=== PATIENT | female | born 1985 | race Caucasian/White ===

== ENCOUNTER 2016-11-15 06:26 | Inpatient (IN) | payer OTHER ==
--- NOTE | 2016-11-13 11:58 | PREOPHP ---
DATE OF ADMISSION: 11/15/2016 HISTORY OF PRESENT ILLNESS: This is a 28-year-old female, 3, para 3. This patient had a history of having large fibroids that are giving her heavy periods with clots. She has being going to the emergency room several times due to pain. She had an ultrasound that showed a very large fibroid. She was placed on oral contraceptive without alleviation of her pain or bleeding. The patient also had side effects from the control. Also, she was placed on naproxen. That also giving her nausea and stomach aches. The patient was advised for a myomectomy due to her age. PAST MEDICAL HISTORY: No medical or surgical antecedents. REVIEW OF SYSTEMS: Healthy history except for anemia, pelvic pain and fibroids. FAMILY HISTORY: Noncontributory. PHYSICAL EXAMINATION: VITAL SIGNS: Blood pressure 90/60, pulse 86, respirations 16. She weighs 146. HEAD AND NECK: Normal. BREASTS: Soft, nontender, no masses. CHEST: Clear. HEART: Normal sinus rhythm. BACK: Normal. ABDOMEN: Soft, with a large uterine fundus. Fibroid palpated above the pubic bone. EXTREMITIES: Normal. GENITOURINARY: External genitalia is negative. The uterus has a very large fibroid. Adnexa nonpalpable due to the size of this mass. DIAGNOSIS: 1. Intractable pelvic pain and bleeding. 2. Large giant fibroid uterus. PLAN: She is undergoing a multiple myomectomy, possible total abdominal hysterectomy. She has been advised of the possible risks and possible complications of the procedure with her alternatives and options. Written information was provided. She was also instructed that in case of inability of removing the fibroids due to bleeding, she might end up with a hysterectomy. She has been advised of the possible risks and possible complications of both procedures. She has been given her alternatives and options and written information was provided. She had no more questions, and agreed to go ahead with the procedure with full understanding and no more questions. Dictated By: Anita Manuel MD /kary/ec /Document#: [id number]
[~2016-11-15] VITALS: Ht 165.1 cm; Wt 65.0 kg
[2016-11-15] VITALS (14 sets, daily range): BP systolic 99–126; BP diastolic 63–82; PULSE 60–90; RESP 12–18; Ht 165.1 cm; Wt 65.0 kg
[~2016-11-15 06:26] MED LIST: CEFAZOLIN 2 GM/50 ML (PMX) 50 ML IVPB SCH; DEXTROSE 5%-0.9% NACL 1,000 ML IV SCH
[2016-11-15] MEDS ORDERED: MIDAZOLAM 1 MG/ML 2 ML INJ ONE (09:21)
[2016-11-15] MEDS ORDERED: morphine SULFATE/PF (10 MG/10 ML) INJ ONE (09:22)
--- NOTE | 2016-11-15 09:29 | HPN ---
Date/Time of Note Date/Time of Note DATE: 11/15/16 TIME: 09:28 Interval H&P Admission Note Pt. seen H&P reviewed: No system changes ARLINE BAEZA MD Nov 15, 2016 09:29
[2016-11-15] MEDS ORDERED: PROPOFOL 100 ML ONE (09:33)
[2016-11-15] MEDS ORDERED: ROCURONIUM 50 MG INJ ONE (09:33)
[2016-11-15] MEDS ORDERED: LIDOCAINE 2% (SDV) 5 ML INJ ONE (09:33)
[2016-11-15] MEDS ORDERED: ONDANSETRON 4 MG INJ ONE (10:48)
[2016-11-15] MEDS ORDERED: DEXAMETHASONE 4 MG/ML 1 ML INJ ONE (10:48)
[2016-11-15] MEDS ORDERED: LABETALOL HCL 20MG INJ IV PRN (11:00)
[2016-11-15] MEDS ORDERED: ZOLPIDEM 5 MG TAB PO PRN (11:00)
[2016-11-15] MEDS ORDERED: HYDROCODONE/APAP (5/325) TAB PO PRN ×3 (11:00)
[2016-11-15] MEDS ORDERED: EPHEDrine SULFATE 50 MG/5 ML SYG IV PRN (11:00)
[2016-11-15] MEDS ORDERED: hydrALAzine 20 MG INJ IV PRN (11:00)
[2016-11-15] MEDS ORDERED: DIPHENHYDRAMINE 50 MG CAP PO PRN (11:00)
[2016-11-15] MEDS ORDERED: BISACODYL (EC) 5 MG TAB PO PRN (11:00)
[2016-11-15] MEDS ORDERED: ONDANSETRON 4 MG INJ IV PRN ×3 (11:00→11:30)
[2016-11-15] MEDS ORDERED: HYDROmorphONE 1 MG/ML SYG IV PRN ×3 (11:00)
[2016-11-15] MEDS ORDERED: KETOROLAC 30 MG INJ IV PRN (11:00)
[2016-11-15] MEDS ORDERED: NALOXONE (0.4 MG/ML) INJ IV PRN (11:00)
[2016-11-15] MEDS ORDERED: OXYCODONE/ACETAMINOPHEN (5/325) TAB PO PRN ×2 (11:00)
[2016-11-15] MEDS ORDERED: FENTAnyl 50 MCG/ML VIAL IV PRN ×5 (11:00→11:30)
[2016-11-15] MEDS ORDERED: DIPHENHYDRAMINE 50 MG INJ IV PRN ×2 (11:00)
[2016-11-15] MEDS ORDERED: MEPERIDINE 25 MG INJ IV PRN (11:00)
--- NOTE | 2016-11-15 11:00 | OPR ---
Date/Time of Note Date/Time of Note DATE: 11/15/16 TIME: 10:56 Operative Report Procedure Date: Nov 15, 2016 Preoperative Diagnosis INTRACTABLE PELVIC PAIN AND BLEEDING FIBROID UTERUS ANEMIA Postoperative Diagnosis EARLY FIBROID UTERUS ENDOMETRIOSIS LEFT PARATUBAL CYST Operation Performed EXPLORATORY LAPAROTOMY ENDOMETRIAL IMPLANT ABLATION RIGHT OVARIAN BIOPSY LEFT PARATUBAL CYST EXCISION Surgeon: ARLINE BAEZA MD pharmacy innovation assistant: YADIRA SUMMERS MD Anesthesia: general Anesthesiologist: HESHAM WHITE Estimated Blood Loss: 0 - 10 ml's Specimens RIGHT OVARIAN BIOPSY LEFT PARATUBAL CYST Complications: None Pt Condition Post Procedure: stable Disposition: PACU ARLINE BAEZA MD Nov 15, 2016 11:00
[2016-11-15] MEDS: KETOROLAC 30 MG INJ IV SCH ×2 (11:07→18:15)
[2016-11-15] MEDS: LACTATED RINGER'S 1,000 ML IV SCH ×3 (11:51→22:05)
[2016-11-15] MEDS: METOCLOPRAMIDE 10 MG TAB PO SCH ×2 (11:55→18:13)
--- NOTE | 2016-11-15 12:30 | OPR ---
DATE OF OPERATION: 11/15/2016 OPERATION PERFORMED: Exploratory laparotomy, endometrial implant ablation, right ovarian biopsy, left paratubal cyst excision. PREOPERATIVE DIAGNOSIS: 1. Intractable pelvic pain and bleeding. 2. Fibroid uterus anemia. POSTOPERATIVE DIAGNOSIS: 1. Early fibroid uterus. 2. Endometriosis left paratubal cyst. SURGEON: Dr. Manuel. INTERACTIVE MEDIA PROJECT MANAGER: . ANESTHESIA: Dr. Ortega. COMPLICATIONS: Procedure with no complications. OPERATIVE PROCEDURE: The patient was given general anesthesia, and placed in the supine position. The abdomen was prepped and draped and a Saha catheter was placed in the bladder. A transverse incision, 2 cm up the pubic bone was made. The abdomen was opened in layers without difficulty. The abdominal cavity was reached and the exploration of the cavity. After application of the osseous retractor was to find the uterus with early fibroid consistency with no definite fibroids as measured by ultrasound. The tubes appeared to be normal. The left tube appears with a paratubal cyst that was removed. Both ovaries with endometriosis implants that were on the right side. Biopsy with a knife and the ovarian tissue was burned in the base with no need ovaries to assure. There were endometrial implants on the uterosacral ligaments posteriorly to the uterus that were burned with the cautery. All of them. All of the implants were burned with the cautery, and the procedure was finished by cleaning the abdomen with saline and protecting both ovaries from adhesions with the Interceed. The exploration of the cavity was done on the upper abdomen, checking both kidneys and finding no other reasons for pelvic pain. The patient tolerated the procedure well. The sponge count and instrument counts were correct. The peritoneum was closed with a 2-0 Vicryl suture. The fascia was closed with 0 PDS loop suture. The subcutaneous tissue was closed with a 2-0 Vicryl suture and a 2-0 Monocryl subcuticular to the skin, Dermabond and Steri-Strips. The patient tolerated the procedure well and left the OR awake and stable. Sponge counts and instrument counts were correct. Intravenous antibiotics were given for prophylaxis. ESTIMATED BLOOD LOSS: Blood loss was minimal and the urine was clear at the end of the procedure. Dictated By: Anita Manuel MD /kary/maxx /Document#: [id number]
[2016-11-15] MEDS: CEFAZOLIN 1 GM/50 ML (PMX) 50 ML IVPB SCH ×2 (14:35→21:57)
--- NOTE | 2016-11-15 15:37 | RADRPT ---
Vent Rate: 69 bpm RR Interval: 0 msec ID Interval: 142 msec QRS Duration: 80 msec QT Interval: 404 msec QTC Interval: 432 msec P-R-T [place]: 58 - 61 - 25 degrees Normal sinus rhythm Normal ECG Electronically Signed By: Slava Banegas [id number]
[2016-11-16] MEDS: METOCLOPRAMIDE 10 MG TAB PO SCH ×5 (00:08→23:32)
[2016-11-16] MEDS: KETOROLAC 30 MG INJ IV SCH ×6 (00:08→23:32)
[2016-11-16 02:30] VITALS: BP 100/61; RESP 18
[2016-11-16] MEDS: LACTATED RINGER'S 1,000 ML IV SCH ×2 (02:50→07:43)
[2016-11-16 05:37] LABS: HEMATOCRIT 34.4 % (37.0-47.0); HEMOGLOBIN 11.4 g/dl (12.0-16.0); LYMPHOCYTES # 0.8 10^3/ul (0.8-2.9); LYMPHOCYTES % 8.8 % (15.0-51.0); MEAN CORPUSCULAR HEMOGLOBIN 28.4 pg (29.0-33.0); MEAN CORPUSCULAR HGB CONC 33.1 g/dl (32.0-37.0); MEAN CORPUSCULAR VOLUME 85.8 fl (82.0-101.0); MEAN PLATELET VOLUME 12.5 fl (7.4-10.4); MONOCYTE # 0.6 10^3/ul (0.3-0.9); MONOCYTES % 6.4 % (0.0-11.0); NEUTROPHIL # 7.8 10^3/ul (1.6-7.5); NEUTROPHILS % 84.4 % (39.0-77.0); PLATELET COUNT 162 10^3/UL (140-415); RED BLOOD COUNT 4.01 10^6/ul (4.20-5.40); RED CELL DISTRIBUTION WIDTH 13.4 % (11.5-14.5); WHITE BLOOD COUNT 9.2 10^3/ul (4.8-10.8)
[2016-11-16] MEDS: CEFAZOLIN 1 GM/50 ML (PMX) 50 ML IVPB SCH (05:44)
[2016-11-16 06:02] LABS: CREATININE 0.76 mg/dl (0.44-1.00); POTASSIUM 4.9 mmol/L (3.5-5.1)
[2016-11-16 07:36] VITALS: BP 96/59; RESP 18
--- NOTE | 2016-11-16 07:58 | PN ---
Date/Time of Note Date/Time of Note DATE: 11/16/16 TIME: 07:55 Assessment/Plan Lines/Catheters IV Catheter Type (from Nrsg): Peripheral IV Saha in Place (from Nrsg): Yes Subjective 24 Hr Interval Summary Day 1 post op Afebrile, feeling good with no pain managed by IV Toradol. Surgery explained to the patient she understands the procedure and is grateful. Not up yet, otherwise encouraged ambulation. Abdomen soft, incision dry Constitutional: BM, ambulates, flatus, improved, no complaints, urine output Feeding: advancing diet Pain Control: well controlled Detailed Summary Eyes: no complaints ENT: no complaints Respiratory: no complaints Cardiovascular: no complaints Gastrointestinal: no complaints Genitourinary: no complaints Musculoskeletal: no complaints Skin: no complaints Neurologic: no complaints Endocrine: no complaints Lymphatic: no complaints Psychological: nl mood/affect, no complaints Immunologic: no complaints Exam/Review of Systems Vital Signs Vitals Vital Signs Date Time Temp Pulse Resp B/P Pulse Ox O2 Delivery O2 Flow Rate FiO2 11/16/16 07:36 98.2 60 18 96/59 98 11/15/16 13:59 Room Air Intake and Output 11/15/16 11/15/16 11/16/16 15:00 23:00 07:00 Intake Total 1000 ml 1500 ml 1260 ml Output Total 160 ml 850 ml 2300 ml Balance 840 ml 650 ml -1040 ml Exam Constitutional: alert, oriented, well developed Psych: nl mood/affect, no complaints Head: atraumatic, normocephalic Eyes: EOMI, nl conjunctiva, nl lids, nl sclera ENMT: mucosa pink and moist, nl external ears & nose, nl lips & teeth, nl nasal mucosa & septum Neck: non-tender, supple Respiratory: clear to auscultation, normal air movement Cardiovascular: nl pulses, regular rate and rhythm Gastrointestinal: nl liver, spleen, non-tender, soft Musculoskeletal: nl extremities to inspection, nl gait and stance Extremities: normal pulses Neurological: RE EXAMINER II-XII intact, nl mental status, nl speech, nl strength Skin: nl turgor, rash or lesions Lymph: nl lymph nodes Results Result Diagram: 11/16/16 0506 11/16/16 0506 ARLINE BAEZA MD Nov 16, 2016 07:58
--- NOTE | 2016-11-16 11:11 | OPPN ---
Date/Time of Note Date/Time of Note DATE: 11/16/16 TIME: 11:08 Anesthesia Follow up Anesthesia Follow up Last documented vital signs Vital Signs Date Time Temp Pulse Resp B/P Pulse Ox O2 Delivery O2 Flow Rate FiO2 11/16/16 07:36 98.2 60 18 96/59 98 11/15/16 13:59 Room Air Respiratory function: WNL Cardiovascular function: WNL Comments post op day one status post laparotomy with post operative pain management with intrathecal duramorph with supplemental parenteral iv toradol administration. patient without complaints and post operative pain well managed with the above. Satisfactory pain management with spinal duramorph with minimal side effects. HESHAM WHITE Nov 16, 2016 11:11
[2016-11-16 11:23] VITALS: BP 98/58; PULSE 75
[2016-11-16 15:07] VITALS: BP 107/69; RESP 18
[2016-11-16 20:18] VITALS: BP 130/81; RESP 18
[2016-11-17 02:18] VITALS: BP 109/69; RESP 16
[2016-11-17] MEDS: KETOROLAC 30 MG INJ IV SCH (06:56)
[2016-11-17] MEDS: METOCLOPRAMIDE 10 MG TAB PO SCH (06:56)
[2016-11-17 08:11] VITALS: BP 104/62; RESP 16
--- NOTE | 2016-11-17 10:04 | PD.PPDC ---
MANUFACTURING TECHNOLOGIST Discharge Instruction Condition Patient Condition: Good Diet Diet: Resume Regular Diet Activity/Restrictions Activity: Normal Activity May Shower Restrictions: No Exercising No Lifting No Driving No Sexual Activity Nothing in the Vagina No [place] No Tampons, douche Wound/Drain Care Instructions Wound/Drain Care Instructions: Remove Steri Strips in 1 week Follow-up Follow-up with Physician: 2, Week/Weeks Return to clinic for QUALITY INSPECTOR Instructions: Fever greater than 101 Chills Worsening abdominal pain Excessive Vaginal Bleeding More than 2 pads per hour Unable to tolerate diet Surgical Instructions: Incisional Drainage Incisional Redness ARLINE BAEZA MD Nov 17, 2016 10:04
--- NOTE | 2016-11-17 13:56 | DS ---
DATE OF ADMISSION: 11/15/2016 DATE OF DISCHARGE: 11/17/2016 HISTORY OF PRESENT ILLNESS: This is a 31 years old female, 3, para 3. The patient had a history of having a large fibroid uterus with heavy periods and clots. She has been going to the emergency room several times due to pain. She had an ultrasound in one of the clinics that refer her to me showing a large fibroid uterus of about 18 cm. This patient was offer surgery since she cannot take control pills and she is taking naproxen without alleviation of her pain. HOSPITAL COURSE: So she was scheduled for an exploratory laparotomy, where we found no large fibroid, but multiple implants of endometrial implants of endometriosis in the uterosacral area and in both ovaries. A biopsy was obtained and the patient did very well after surgery and she will be treated with Lupron treatment for her pelvic pain. The patient did very well after surgery. She was ambulatory, voiding well with a bowel movement on the 2nd postoperative day. She had a near normal blood tests. She was explained about the procedure and she was going to have Lupron treatment that will probably take care of her heaviness of her periods and her pain. She is willing to go home today and she is afebrile, walking with a clean incision, tolerating diet with bowel movement and voiding well. So she is asking to go home and she is reliable. She was given instructions of what to do and not to do. DISCHARGE MEDICATIONS: She was given Tylenol number 3. Ibuprofen p.r.n. She was given Terazol cream and Uristat for urinary burning and Macrobid for prophylaxis. FOLLOWUP: She was given further instructions to see me in the office on the or earlier if she had any problems. CONDITION ON DISCHARGE: She was stable and in good condition at the time of discharge. FINAL DIAGNOSIS: Endometriosis. Dictated By: Anita Manuel MD /kary/doron /Document#: [id number]
== END 2016-11-17 12:15 | disposition home or self-care (01) | DRG 743 ==
LOC: REC 06:26 → MS2 13:45
PROVIDERS: ADMIT Obstetrics & Gynecology; ATTEND Obstetrics & Gynecology
PROC: 0UB00ZX Excision of Right Ovary, Open Approach, Diagnostic (ICD-10-PCS; 2016-11-15)
PROC: 0UB60ZZ Excision of Left Fallopian Tube, Open Approach (ICD-10-PCS; 2016-11-15)
PROC: 0U5B0ZZ Destruction of Endometrium, Open Approach (ICD-10-PCS; principal; 2016-11-15 09:00)
DX: N80.1 Endometriosis of ovary (principal); D25.9 Leiomyoma of uterus, unspecified; N83.8 Other noninflammatory disorders of ovary, fallopian tube and broad ligament; R10.2 Pelvic and perineal pain; D64.9 Anemia, unspecified; N80.3 Endometriosis of pelvic peritoneum
CPT/HCPCS: 80051; 82565; 84520; 85025; 87086; 88305; 93005; J0690; J1100; J1885; J2175; J2250; J2274; J2405; J3010; J7042; J7120

== ENCOUNTER 2017-07-06 09:38 | Outpatient (CLI) | END 2017-07-06 13:18 | disposition home or self-care (01) ==